=== PATIENT | female | born 1985 | race Caucasian/White ===

== ENCOUNTER 2023-10-05 05:27 | Emergency (ER) | payer OTHER, MEDICAID, SELFPAY ==
[2023-10-05 05:35] VITALS: BP 124/95; PULSE 98; RESP 20; TEMP 37.4; O2SAT 100; BMI 28.1
--- NOTE | 2023-10-05 05:40 | ED_ITS ---
HPI - General Adult General Chief complaint: Dental/Oral Stated complaint: face swollen Time Seen by Provider: 10/05/23 05:34 Source: patient Mode of arrival: Ambulatory History of Present Illness HPI narrative: Patient is a 38-year-old female here for evaluation swelling and discomfort to her left upper face/jaw. She states that earlier this week she had a left front tooth break off. She has had pain and discomfort and increasing swelling since then. No problems breathing. She has had issues like this in the past and antibiotics as improve the symptoms. She has an appointment scheduled with the dentist at the beginning of next week. Related Data Previous Rx's Medication Instructions Recorded penicillin V potassium 500 mg 500 mg PO QID 7 days #28 tabs 10/05/23 tablet Allergies Allergy/AdvReac Type Severity Reaction Status Date / Time levofloxacin [From Levaquin] Allergy Unknown Verified 10/05/23 05:42 Review of Systems Constitutional Constitutional: Reports system reviewed and no additional complaints, except as documented ENT Ears, Nose, Mouth, and Throat: Reports system reviewed and no additional complaints, except as documented Respiratory Respiratory: Reports system reviewed and no additional complaints, except as documented Integumentary/Breasts Skin/Breast: Reports system reviewed and no additional complaints, except as documented Exam Initial Vital Signs Initial Vital Signs: Vital Signs Temperature 99.4 F 10/05/23 05:35 Pulse Rate 98 H 10/05/23 05:35 Respiratory Rate 20 10/05/23 05:35 Blood Pressure 124/95 H 10/05/23 05:35 Pulse Oximetry 100 10/05/23 05:35 Oxygen Delivery Method Room Air 10/05/23 05:35 [facility] Mouth: oral mucosae normal, lip normal and tongue normal Teeth and gingiva: poor dentition Resp Effort & Inspection: normal respiratory effort Skin General: no rashes or lesions noted Neuro General: patient alert and patient awake Course Orders Ordered: Discontinued Medications Naproxen (Naproxen 250 Mg Tablet) 500 mg PO NOW ONE Stop: 10/05/23 05:38 Penicillin V Potassium (Penicillin Vk 250 Mg Tablet) 500 mg PO NOW ONE Stop: 10/05/23 05:38 Vital Signs Vital signs: Vital Signs - 8 hr 10/05/23 05:35 Temperature 99.4 F Pulse Rate 98 H Respiratory Rate 20 Blood Pressure 124/95 H Pulse Oximetry 100 Oxygen Delivery Method Room Air Medical Decision Making MDM Narrative Medical decision making narrative: Patient does have poor dentition. She does have swelling to the left upper maxillary region up to under her left eye. There is no intra oral abscess that would be amenable to drainage here in the ER. She was require follow-up with a dentist for definitive treatment and she has this established already. Will discharge patient home with a prescription for antibiotics. Her 1st dose was given here in the ER and a prescription was sent to the pharmacy of her choice. She was given return precautions. She expressed understanding and agreement. Discharge Plan Departure Patient Disposition: Home Clinical Impression: Dental infection Instructions: Tooth Abscess Activity Restrictions/Additional Instructions: You can take ibuprofen or Naprosyn for any discomfort. It is important that you follow-up with a dentist for definitive treatment. Continue the rest of your medications as directed. A prescription for antibiotics was sent to [facility] here in [place]. Prescriptions: New penicillin V potassium 500 mg tablet 500 mg PO QID 7 Days Qty: 28 0RF Stand Alone Forms: Patient Portal/API
[2023-10-05] MEDS: NAPROXEN 250 MG TABLET 500 MG PO (05:43)
[2023-10-05] MEDS: PENICILLIN VK 250 MG TABLET 500 MG PO (05:43)
== END 2023-10-05 05:47 | disposition home or self-care (01) ==
PROVIDERS: Emergency Provider Emergency Medicine
DX: K04.7 Periapical abscess without sinus (principal)
CPT/HCPCS: 99283

== ENCOUNTER 2023-11-07 12:34 | Emergency (ER) | payer OTHER, MEDICAID, SELFPAY ==
[2023-11-07 12:39] VITALS: BP 143/99; PULSE 93; RESP 19; TEMP 37; O2SAT 98; BMI 25.8
--- NOTE | 2023-11-07 12:49 | ED_ITS ---
HPI - Anxiety General Chief Complaint: Anxiety Stated Complaint: Panic attacks Time Seen by Provider: 11/07/23 12:44 Source: patient Mode of arrival: Ambulatory History of Present Illness HPI narrative: 38-year-old female with a history of anxiety who is new to the local area who has been getting her medications through a telemedicine doctor from [place]. She states that her telemedicine doctor stated that she was unable to provide an y more prescriptions for Xanax. Patient states she has made contact with the mental health provider here in the local area but does not have an appointment scheduled. She was out of her Xanax in his having panic attacks. No suicidal ideation. Related Data Previous Rx's Medication Instructions Recorded alprazolam 0.5 mg tablet 0.5 mg PO TID PRN anxiety #12 tabs 11/07/23 Allergies Allergy/AdvReac Type Severity Reaction Status Date / Time levofloxacin [From Levaquin] Allergy Unknown Verified 10/05/23 05:42 Review of Systems Psychiatric Psychiatric: Reports system reviewed and no additional complaints, except as documented Patient History Social History Smoking Status: Current every day smoker Smoking Status: Current every day smoker tobacco type: cigarettes Substance Use Type: does not use Exam Initial Vital Signs Initial Vital Signs: Vital Signs Temperature 98.6 F 11/07/23 12:39 Pulse Rate 93 H 11/07/23 12:39 Respiratory Rate 19 11/07/23 12:39 Blood Pressure 143/99 H 11/07/23 12:39 Pulse Oximetry 98 11/07/23 12:39 Oxygen Delivery Method Room Air 11/07/23 12:39 Resp Effort & Inspection: normal respiratory effort Cardio Rate: regular rate Neuro General: patient alert, patient awake and moves all extremities Psych Other: Patient is tearful and anxious. Course Vital Signs Vital signs: Vital Signs - 8 hr 11/07/23 12:39 Temperature 98.6 F Pulse Rate 93 H Respiratory Rate 19 Blood Pressure 143/99 H Pulse Oximetry 98 Oxygen Delivery Method Room Air MDM - Anxiety MDM Narrative Medical decision making narrative: Patient declined the offer for social work. States she feels safe at home. I will refill 12 Xanax pills although she was informed that she will be unable to receive any more refills from the emergency department as this needs to come from a mental provider. She expressed understanding and agreement with plan. Discharge Plan Departure Patient Disposition: Home Clinical Impression: Acute anxiety Instructions: Anxiety Disorders Activity Restrictions/Additional Instructions: You are going to need to find a mental health provider here locally. The emergency department is not going to be able to refill this medication in the future. This needs to come from a mental health provider. I also recommend that you make contact with the primary care doctor. Prescriptions: New alprazolam 0.5 mg tablet 0.5 mg PO TID PRN (Reason: anxiety) Qty: 12 0RF Referrals: Miscellaneous,Doctor, MD [Primary Care Provider] - Stand Alone Forms: Patient Portal/API
== END 2023-11-07 12:57 | disposition home or self-care (01) ==
PROVIDERS: Emergency Provider Emergency Medicine
DX: F41.9 Anxiety disorder, unspecified (principal)
CPT/HCPCS: 99281; 99282